=== PATIENT | male | born 1955 | race Hispanic/Latino ===

== ENCOUNTER 2016-06-25 07:13 | Emergency (ER) | payer OTHER ==
[2016-06-25 07:18] VITALS: BP 155/99; PULSE 80; RESP 20; TEMP 98
[2016-06-25 07:28] VITALS: O2SAT 100
[2016-06-25] MEDS ORDERED: Naproxen 500 MG TAB PO ONE (07:44)
--- NOTE | 2016-06-25 07:44 | ED PDOC ---
HPI: General Adult Time Seen by Provider: 06/25/16 07:29 Chief Complaint (Nursing): Back Pain Chief Complaint (Provider): back pain History Per: Patient History/Exam Limitations: no limitations Additional Complaint(s): 60yo male who is a [employer] employee comes to the ED complaining of back pain, now radiating down the left leg for 3 days. 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 No dysuria, fall or trauma. Patient also reports some discomfort in his groin. Taking aspirin. PMD: Morteza Past Medical History Reviewed: Historical Data, Nursing Documentation, Vital Signs Vital Signs: Last Vital Signs Temp 98 F 06/25/16 07:25 Pulse 80 06/25/16 07:25 Resp 20 06/25/16 07:25 BP 155/99 H 06/25/16 07:25 Pulse Ox 100 06/25/16 07:51 - Medical History PMH: HTN, Hyperlipidemia - Surgical History Surgical History: No Surg Hx - Family History Family History: States: No Known Family Hx - Social History Drugs: Denies - Home Medications Home Medications: Ambulatory Orders Medication Instructions Recorded Aspirin [Aspirin EC] 81 mg PO DAILY 11/08/14 Hydrochlorothiazide 12.5 mg PO DAILY #30 cap 11/08/14 Oxycodone HCl/Acetaminophen 1 tab PO Q6 PRN #18 tab 11/08/14 [Percocet 325 mg-5 mg] Rosuvastatin Calcium [Crestor] 20 mg PO HS 11/08/14 Ibuprofen [Motrin] 600 mg PO Q8 PRN #6 tab 11/24/14 oxyCODONE/Acetaminophen [Percocet 1 ea PO BID PRN #8 tab 11/24/14 5/325 mg Tab] Cyclobenzaprine [Cyclobenzaprine 10 mg PO TID #10 tab 06/25/16 HCl] Naproxen [Naprosyn] 500 mg PO Q12H #20 tab 06/25/16 - Allergies Allergies/Adverse Reactions: Allergies Allergy/AdvReac Type Severity Reaction Status Date / Time Penicillins Allergy SWELLING Verified 06/25/16 07:24 Review of Systems ROS Statement: Except As Marked, All Systems Reviewed And Found Negative Genitourinary Male: Positive for: Other (groin discomfort). Negative for: Dysuria Musculoskeletal: Positive for: Back Pain, Leg Pain Physical Exam - Reviewed Nursing Documentation Reviewed: Yes Vital Signs Reviewed: Yes - Physical Exam Appears: Positive for: Well, Non-toxic, No Acute Distress Head Exam: Positive for: ATRAUMATIC, NORMAL INSPECTION, NORMOCEPHALIC Skin: Positive for: Warm, Dry Eye Exam: Positive for: EOMI, PERRL Male Genital Exam: Positive for: other (small left inguinal hernia, non incarcerated. ) Back: Positive for: Other (left paralumbar spasm and tenderness. ) Extremity: Positive for: Normal ROM Neurologic/Psych: Positive for: Alert, Oriented (x3). Negative for: Motor/ Sensory Deficits - ECG O2 Sat by Pulse Oximetry: 100 (RA) Pulse Ox Interpretation: Normal Medical Decision Making Medical Decision Makin Will start flexeril & Naprosyn in the ED. Recommend outpatient follow up for hernia. Disposition - Clinical Impression Clinical Impression: Back strain, Hernia - Patient ED Disposition Is Patient to be Admitted: No Counseled Patient/Family Regarding: Diagnosis, Need For Followup, Rx Given - Disposition Referrals: Sung Doe MD [Staff Provider] - Disposition: Routine/Home Disposition Time: 09:31 Condition: FAIR Additional Instructions: Follow up with employee health to return to work Prescriptions: Cyclobenzaprine [Cyclobenzaprine HCl] 10 mg PO TID #10 tab Naproxen [Naprosyn] 500 mg PO Q12H #20 tab Instructions: Back Pain (ED), Inguinal Hernia (ED) Additional Comments - Additional Comments Additional Comments: Scribe Attestation: Documented by Didier Duque acting as a scribe for Eddi Baptiste MD. Provider Scribe Attestation: All medical record entries made by the Scribe were at my direction and personally dictated by me. I have reviewed the chart and agree that the record accurately reflects my personal performance of the history, physical exam, medical decision making, and the department course for this patient. I have also personally directed, reviewed, and agree with the discharge instructions and disposition.
[2016-06-25] MEDS ORDERED: Naproxen 500 MG TAB PO STA (07:47)
== END 2016-06-25 09:40 | disposition home or self-care (01) ==
LOC: H.ER 07:13
DX: S39.012A Strain of muscle, fascia and tendon of lower back, initial encounter (principal); X50.3XXA Overexertion from repetitive movements, initial encounter; Y99.0 Civilian activity done for income or pay; E78.5 Hyperlipidemia, unspecified; I10 Essential (primary) hypertension; Z79.82 Long term (current) use of aspirin; Z88.0 Allergy status to penicillin

== ENCOUNTER 2017-01-23 08:41 | Emergency (ER) | payer BC, OTHER ==
[2017-01-23 08:49] VITALS: TEMP 97.4
--- NOTE | 2017-01-23 10:12 | ED PDOC ---
HPI: Hypertension/Hypotension Time Seen by Provider: 01/23/17 09:10 Chief Complaint (Nursing): High Blood Pressure Chief Complaint (Provider): High blood pressure History Per: Patient History/Exam Limitations: no limitations Onset/Duration Of Symptoms: Hrs (x2) Current Symptoms Are (Timing): Still Present Associated Symptoms: Headache. denies: Chest Pain, Dyspnea Additional Complaint(s): Chandana Jolly is a 61 year old male, with a past medical history of hypertension and hypercholesterolemia, who presents to the emergency department complaining of high blood pressure and headache onset x2 hours prior to arrival. 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 Patient states he hasn't taken his blood pressure medications. He is currently taking Microzide 12.5mg and Xanax. He denies any chest pain, shortness of breath, fever or chills. No further medical complaints. PMD: Tobias Pro Past Medical History Reviewed: Historical Data, Nursing Documentation, Vital Signs Vital Signs: Last Vital Signs Temp 97.4 F L 01/23/17 08:48 Pulse 82 01/23/17 08:59 Resp 15 01/23/17 08:59 BP 145/101 H 01/23/17 08:59 Pulse Ox 97 01/23/17 08:59 - Medical History PMH: HTN, Hyperlipidemia - Family History Family History: States: Unknown Family Hx - Social History Current smoker - smoking cessation education provided: Yes Alcohol: Social Drugs: Denies - Home Medications Home Medications: Ambulatory Orders Medication Instructions Recorded Aspirin [Aspirin EC] 81 mg PO DAILY 11/08/14 Hydrochlorothiazide 12.5 mg PO DAILY #30 cap 11/08/14 Oxycodone HCl/Acetaminophen 1 tab PO Q6 PRN #18 tab 11/08/14 [Percocet 325 mg-5 mg] Rosuvastatin Calcium [Crestor] 20 mg PO HS 11/08/14 Ibuprofen [Motrin] 600 mg PO Q8 PRN #6 tab 11/24/14 oxyCODONE/Acetaminophen [Percocet 1 ea PO BID PRN #8 tab 11/24/14 5/325 mg Tab] Cyclobenzaprine [Cyclobenzaprine 10 mg PO TID #10 tab 06/25/16 HCl] Naproxen [Naprosyn] 500 mg PO Q12H #20 tab 06/25/16 - Allergies Allergies/Adverse Reactions: Allergies Allergy/AdvReac Type Severity Reaction Status Date / Time Penicillins Allergy SWELLING Verified 06/25/16 07:24 Review of Systems ROS Statement: Except As Marked, All Systems Reviewed And Found Negative Constitutional: Negative for: Fever, Chills Cardiovascular: Negative for: Chest Pain Respiratory: Negative for: Shortness of Breath Neurological: Positive for: Headache Physical Exam - Reviewed Nursing Documentation Reviewed: Yes Vital Signs Reviewed: Yes - Physical Exam Appears: Positive for: Well, Non-toxic, No Acute Distress Head Exam: Positive for: ATRAUMATIC, NORMAL INSPECTION, NORMOCEPHALIC Skin: Positive for: Normal Color, Warm, Dry Eye Exam: Positive for: EOMI, Normal appearance, PERRL Neck: Positive for: Normal, Painless ROM, Supple Cardiovascular/Chest: Positive for: Regular Rate, Rhythm. Negative for: Murmur Respiratory: Positive for: Normal Breath Sounds. Negative for: Respiratory Distress Gastrointestinal/Abdominal: Positive for: Normal Exam, Bowel Sounds, Soft. Negative for: Tenderness, Guarding, Rebound Back: Positive for: Normal Inspection. Negative for: L CVA Tenderness, R CVA Tenderness Extremity: Positive for: Normal ROM. Negative for: Pedal Edema, Deformity, Swelling Neurologic/Psych: Positive for: Alert, Oriented. Negative for: Motor/Sensory Deficits - Laboratory Results Result Diagrams: 01/23/17 10:32 01/23/17 10:32 - ECG O2 Sat by Pulse Oximetry: 97 (RA) Pulse Ox Interpretation: Normal Medical Decision Making Medical Decision Making: Initial Impression: hypertension Initial Plan: --BMP --CBC w/ differential --Hydrodiuril 25 mg PO --reevaluation Scribe Attestation: Documented by Eugenio Elias, acting as a scribe for Winter Marquez MD Provider Scribe Attestation: All medical record entries made by the Scribe were at my direction and personally dictated by me. I have reviewed the chart and agree that the record accurately reflects my personal performance of the history, physical exam, medical decision making, and the department course for this patient. I have also personally directed, reviewed, and agree with the discharge instructions and disposition. 11.30a - patient's blood pressure is improved. Labs are normal. will discharge. Disposition - Clinical Impression Clinical Impression: Stress and adjustment reaction - Patient ED Disposition Is Patient to be Admitted: No Doctor Will See Patient In The: Office Counseled Patient/Family Regarding: Diagnosis, Need For Followup - Disposition Referrals: Jhonathan Pro MD [Staff Provider] - Rashid Parks [Outside] Disposition: Routine/Home Disposition Time: 11:30 Condition: IMPROVED Additional Instructions: continue your medicines as prescribed starting 01/24/2017 Instructions: Stress (ED), Hypertension (ED) Forms: [employer] (Maori), [facility] ED School/Work Excuse - POA Present On Arrival: None
[2017-01-23 10:36] LABS: BASO # 0.1 K/uL (0.0-0.2); BASO % 0.7 % (0.0-2.0); EOS % 0.5 % (0.0-4.0); HEMATOCRIT 47.7 % (35.0-51.0); LYMPH # 2.2 K/uL (1.0-4.3); LYMPH % 23.8 % (20.0-40.0); MEAN CELL VOLUME 96.5 fl (80.0-94.0); MEAN CORPUSCULAR HEMOGLOBIN 33.3 pg (27.0-31.0); MEAN CORPUSCULAR HGB CONC 34.5 g/dL (33.0-37.0); MEAN PLATELET VOLUME 8.3 fl (7.2-11.7); MONO # 0.8 K/uL (0.0-0.8); MONO % 8.3 % (0.0-10.0); NEUT # 6.3 K/uL (1.8-7.0); NEUT % 66.7 % (50.0-75.0); NRBC % 0.1 % (0.0-0.0); RED CELL DISTRIBUTION WIDTH 13.1 % (11.5-14.5); WHITE BLOOD COUNT 9.4 K/uL (4.8-10.8)
[2017-01-23 10:47] LABS: BLOOD UREA NITROGEN 17 mg/dl (9-20); CARBON DIOXIDE 24 mmol/L (22-30); CHLORIDE 106 mmol/L (98-107); GFR AFRICAN-AMERICAN > 60; GLUCOSE,RANDOM 114 mg/dL (75-110); POTASSIUM 4.5 MMOL/L (3.6-5.0); SODIUM 140 mmol/l (132-148)
[2017-01-23 12:44] VITALS: BP 138/90; PULSE 52; RESP 14; O2SAT 99
== END 2017-01-23 12:15 | disposition home or self-care (01) ==
LOC: H.ER 08:41
DX: F43.20 Adjustment disorder, unspecified (principal); I10 Essential (primary) hypertension; E78.5 Hyperlipidemia, unspecified; F17.200 Nicotine dependence, unspecified, uncomplicated; Z79.82 Long term (current) use of aspirin; Z88.0 Allergy status to penicillin

== ENCOUNTER 2017-05-23 13:46 | Emergency (ER) | payer OTHER, BC ==
[2017-05-23 13:51] VITALS: RESP 16; TEMP 98; O2SAT 97
--- NOTE | 2017-05-23 13:59 | ED PDOC ---
HPI: General Adult Time Seen by Provider: 05/23/17 13:53 Chief Complaint (Nursing): Back Pain Chief Complaint (Provider): back pain History Per: Patient Additional Complaint(s): 62-year-old male presents with lower back pain status post fall off a ladder. Patient injured right side of lower back. He denies head injury or loss of consciousness. Patient able to walk but has pain when doing so. Injury occurred about 45 minutes prior to arrival. PMD: Dr. Bharath Pro Past Medical History Reviewed: Historical Data, Nursing Documentation, Vital Signs Vital Signs: Last Vital Signs Temp 98.0 F 05/23/17 13:49 Pulse 112 H 05/23/17 13:49 Resp 16 05/23/17 13:49 BP 152/100 H 05/23/17 13:49 Pulse Ox 97 05/23/17 14:45 - Medical History PMH: HTN, Hyperlipidemia - Family History Family History: States: No Known Family Hx - Living Arrangements Living Arrangements: With Family - Social History Current smoker - smoking cessation education provided: Yes Alcohol: Social Drugs: Denies - Home Medications Home Medications: Ambulatory Orders Medication Instructions Recorded Aspirin [Aspirin EC] 81 mg PO DAILY 11/08/14 Hydrochlorothiazide 12.5 mg PO DAILY #30 cap 11/08/14 Oxycodone HCl/Acetaminophen 1 tab PO Q6 PRN #18 tab 11/08/14 [Percocet 325 mg-5 mg] Rosuvastatin Calcium [Crestor] 20 mg PO HS 11/08/14 Ibuprofen [Motrin] 600 mg PO Q8 PRN #6 tab 11/24/14 oxyCODONE/Acetaminophen [Percocet 1 ea PO BID PRN #8 tab 11/24/14 5/325 mg Tab] Cyclobenzaprine [Cyclobenzaprine 10 mg PO TID #10 tab 06/25/16 HCl] Naproxen [Naprosyn] 500 mg PO Q12H #20 tab 06/25/16 Cyclobenzaprine [Cyclobenzaprine 10 mg PO TID PRN #20 tab 05/23/17 HCl] Naproxen [Naprosyn] 500 mg PO BID #20 tab 05/23/17 - Allergies Allergies/Adverse Reactions: Allergies Allergy/AdvReac Type Severity Reaction Status Date / Time Penicillins Allergy SWELLING Verified 06/25/16 07:24 Review of Systems ROS Statement: Except As Marked, All Systems Reviewed And Found Negative Musculoskeletal: Positive for: Back Pain (right side low back pain s/p fall) Physical Exam - Reviewed Nursing Documentation Reviewed: Yes Vital Signs Reviewed: Yes - Physical Exam Appears: Positive for: Well, Non-toxic, No Acute Distress Skin: Negative for: Rash Eye Exam: Positive for: Normal appearance Cardiovascular/Chest: Positive for: Regular Rate, Rhythm Respiratory: Positive for: Normal Breath Sounds Gastrointestinal/Abdominal: Positive for: Soft. Negative for: Tenderness Back: Positive for: Vertebral Tenderness (Tenderness and muscle spasm right lower lumbar region, no midline tenderness, no CVA tenderness bilaterally, negative bilateral straight leg raise) Extremity: Positive for: Normal ROM Neurologic/Psych: Positive for: Alert, Oriented - ECG O2 Sat by Pulse Oximetry: 97 Pulse Ox Interpretation: Normal - Other Rad L/S Spine x-ray X-Ray: Interpreted by Me, Viewed By Me X-Ray Interpretation: no fx, no dis Medical Decision Making Medical Decision Makin61 year old with right side back pain s/p fall Plan: PO motrin and tylenol X-ray LS spine Patient reports improvement of pain after meds given. Patient is aware of x-ray results, all questions answered. Instructions given for Naprosyn and Flexeril. Patient was instructed to follow-up with primary doctor or orthopedist. Repeat vital signs prior to d/c are stable. Disposition - Clinical Impression Clinical Impression: Back strain, Back contusion, Accidental fall - Patient ED Disposition Is Patient to be Admitted: No Counseled Patient/Family Regarding: Studies Performed, Diagnosis, Need For Followup, Rx Given - Disposition Referrals: Jhonathan Pro MD [Staff Provider] - Gabe Huerta III, MD [Staff Provider] - Disposition: Routine/Home Disposition Time: 15:27 Condition: STABLE Additional Instructions: Rest as much as possible and avoid heavy lifting. Take prescription meds as directed as needed for pain. Follow up with primary doctor or with orthopedist for any persistent symptoms. Prescriptions: Cyclobenzaprine [Cyclobenzaprine HCl] 10 mg PO TID PRN #20 tab PRN Reason: Muscle Spasm Naproxen [Naprosyn] 500 mg PO BID #20 tab Instructions: Muscle Strain (DC), Low Back Pain in Adults Forms: [employer] (Georgian), [facility] ED School/Work Excuse
--- NOTE | 2017-05-23 15:33 | RAD ---
PROCEDURE: Radiographs of the Lumbar Spine. HISTORY: trauma COMPARISON: No prior. FINDINGS: BONES: Normal alignment. No listhesis. No fracture. DISC SPACES: Unremarkable. OTHER FINDINGS: Partially calcified aneurysmal dilatation distal aorta 3.4 cm. IMPRESSION: Unremarkable radiographs of the lumbar spine. Aneurysmal dilatation of partially calcified abdominal aorta.
[2017-05-23 15:59] VITALS: BP 144/82; PULSE 88
== END 2017-05-23 15:59 | disposition home or self-care (01) ==
LOC: H.ER 13:46
DX: S39.012A Strain of muscle, fascia and tendon of lower back, initial encounter (principal); W11.XXXA Fall on and from ladder, initial encounter; Y99.0 Civilian activity done for income or pay; E78.5 Hyperlipidemia, unspecified; I10 Essential (primary) hypertension; I70.0 Atherosclerosis of aorta; Z79.82 Long term (current) use of aspirin; Z88.0 Allergy status to penicillin

== ENCOUNTER 2017-07-31 08:11 | Emergency (ER) | payer BC, OTHER ==
[2017-07-31 08:16] VITALS: O2SAT 98; BMI 27.3
[2017-07-31] MEDS ORDERED: Sodium Chloride 0.9% 1,000 ML IV STA (08:33)
--- NOTE | 2017-07-31 08:41 | ED PDOC ---
HPI: Abdomen Time Seen by Provider: 07/31/17 08:21 Chief Complaint (Nursing): Abdominal Pain Chief Complaint (Provider): abdominal pain History Per: Patient History/Exam Limitations: no limitations Onset/Duration Of Symptoms: Days (x2) Current Symptoms Are (Timing): Still Present Location Of Pain/Discomfort: Epigastric Quality Of Discomfort: "Pain" Associated Symptoms: denies: Fever, Chills, Nausea, Vomiting, Diarrhea Additional Complaint(s): Chandana Jolly is a 61 year old male, with a past medical history of HTN and hypercholesterolemia, who presents to the emergency department complaining of an epigastric abdominal pain onset for x2 days. Patient states pain does not radiate. He reports temporary relief with Advil. Patient is currently taking Aspirin, last dose was yesterday afternoon. He denies any headache, dizziness, shortness of breath, numbness or tingling, weakness, recent travel or new foods. No further medical complaints. Saw Dr. Pro in the hospital and told to go to the ER for a check up. No leg pain or long distance travel. No hormone tx. PMD: Dr. Bharath Pro Past Medical History Reviewed: Historical Data, Nursing Documentation, Vital Signs Vital Signs: Last Vital Signs Temp 98.1 F 07/31/17 08:14 Pulse 73 07/31/17 08:14 Resp 20 07/31/17 08:14 BP 134/86 07/31/17 08:14 Pulse Ox 98 07/31/17 08:44 - Medical History PMH: HTN, Hyperlipidemia Denies: Chronic Kidney Disease - Surgical History Surgical History: No Surg Hx - Family History Family History: States: Unknown Family Hx - Social History Current smoker - smoking cessation education provided: Yes (Heavy smoker) Alcohol: Social Drugs: Denies - Immunization History Hx Tetanus Toxoid Vaccination: No Hx Influenza Vaccination: Yes Hx Pneumococcal Vaccination: Yes - Home Medications Home Medications: Ambulatory Orders Medication Instructions Recorded Aspirin [Aspirin EC] 81 mg PO DAILY 11/08/14 Hydrochlorothiazide 12.5 mg PO DAILY #30 cap 11/08/14 Oxycodone HCl/Acetaminophen 1 tab PO Q6 PRN #18 tab 11/08/14 [Percocet 325 mg-5 mg] Rosuvastatin Calcium [Crestor] 20 mg PO HS 11/08/14 Ibuprofen [Motrin] 600 mg PO Q8 PRN #6 tab 11/24/14 oxyCODONE/Acetaminophen [Percocet 1 ea PO BID PRN #8 tab 11/24/14 5/325 mg Tab] Cyclobenzaprine [Cyclobenzaprine 10 mg PO TID #10 tab 06/25/16 HCl] Naproxen [Naprosyn] 500 mg PO Q12H #20 tab 06/25/16 Cyclobenzaprine [Cyclobenzaprine 10 mg PO TID PRN #20 tab 05/23/17 HCl] Naproxen [Naprosyn] 500 mg PO BID #20 tab 05/23/17 - Allergies Allergies/Adverse Reactions: Allergies Allergy/AdvReac Type Severity Reaction Status Date / Time Penicillins Allergy SWELLING Verified 06/25/16 07:24 Review of Systems ROS Statement: Except As Marked, All Systems Reviewed And Found Negative Constitutional: Negative for: Fever, Chills Respiratory: Negative for: Shortness of Breath Gastrointestinal: Positive for: Abdominal Pain (epigastric). Negative for: Nausea, Vomiting, Diarrhea Neurological: Negative for: Weakness, Numbness, Headache, Dizziness Physical Exam - Reviewed Nursing Documentation Reviewed: Yes Vital Signs Reviewed: Yes - Physical Exam Appears: Positive for: Non-toxic Head Exam: Positive for: ATRAUMATIC, NORMOCEPHALIC Skin: Positive for: Normal Color, Warm, Dry Eye Exam: Positive for: Normal appearance, EOMI, PERRL ENT: Positive for: Normal ENT Inspection. Negative for: Nasal Congestion Neck: Positive for: Painless ROM, Supple Cardiovascular/Chest: Positive for: Regular Rate, Rhythm, Chest Non Tender. Negative for: Edema, Murmur Respiratory: Positive for: Normal Breath Sounds. Negative for: Respiratory Distress Gastrointestinal/Abdominal: Positive for: Tenderness (to lower sternal and epigastric area) Back: Positive for: Normal Inspection. Negative for: L CVA Tenderness, R CVA Tenderness, Vertebral Tenderness Extremity: Positive for: Normal ROM (upper and lower extremities). Negative for : Tenderness, Calf Tenderness, Deformity, Swelling Neurologic/Psych: Positive for: Alert, Oriented. Negative for: Motor/Sensory Deficits - Laboratory Results Result Diagrams: 07/31/17 08:58 07/31/17 08:58 Interpretation Of Abn Labs: no acute - ECG ECG: Positive for: Interpreted By Me, Viewed By Me ECG Rhythm: Positive for: Sinus Rhythm. Negative for: Atrial Fibrillation O2 Sat by Pulse Oximetry: 98 (RA) Pulse Ox Interpretation: Normal - Radiology X-Ray: Interpreted by Me, Viewed By Me X-Ray Interpretation: No Acute Disease - Progress ED Course And Treament: 1024: Dr. Pro has seen pt. and evaluated in the ER. Wants pt. to be discharged and fu with him. Pt. is pain free currently. Has had multiple work ups for chest per Dr. Pro with no findings. Per. Dr. Pro, pt. with chest pain so he wanted an EKG done during that time. No acute findings on it so ok to DC. Pt. is aaox3. Tolerated PO. Medical Decision Making Medical Decision Making: Time: 08:21 Initial Impression: epigastric pain Initial Plan: --EKG --CMP --Lipase --Troponin I --CBC w/ differential --PTT --PT --Chest portable [RAD] --Sodium Chloride 1,000 ml IV 1,000 mls/hr --Reevaluation Scribe Attestation: Documented by Eugenio Elias acting as a scribe for Silas Ríos MD. Scribe Attestation: All medical record entries made by the Scribe were at my direction and personally dictated by me. I have reviewed the chart and agree that the record accurately reflects my personal performance of the history, physical exam, medical decision making, and the department course for this patient. I have also personally directed, reviewed, and agree with the discharge instructions and disposition. Disposition - Clinical Impression Clinical Impression: Chest pain - Patient ED Disposition Is Patient to be Admitted: No Counseled Patient/Family Regarding: Studies Performed, Diagnosis, Need For Followup - Disposition Referrals: Jhonathan Pro MD [Staff Provider] - 08/01/17 Disposition: Routine/Home Disposition Time: 10:27 Condition: STABLE Additional Instructions: Return if not better in 3 days. Instructions: Chest Pain Forms: [facility] (Mauritanian)
[2017-07-31 09:05] LABS: BASO # 0.1 K/uL (0.0-0.2); BASO % 0.8 % (0.0-2.0); EOS # 0.1 K/uL (0.0-0.7); HEMOGLOBIN 16.1 g/dL (12.0-18.0); LYMPH # 2.7 K/uL (1.0-4.3); MEAN CORPUSCULAR HEMOGLOBIN 33.8 pg (27.0-31.0); MEAN CORPUSCULAR HGB CONC 34.9 g/dL (33.0-37.0); MEAN PLATELET VOLUME 8.2 fl (7.2-11.7); MONO # 0.7 K/uL (0.0-0.8); NEUT # 4.5 K/uL (1.8-7.0); NEUT % 55.2 % (50.0-75.0); RBC 4.77 Mil/uL (4.40-5.90); WHITE BLOOD COUNT 8.1 K/uL (4.8-10.8)
[2017-07-31 09:14] LABS: ALB/GLOB RATIO 1.2 (1.0-2.1); ALBUMIN 3.9 g/dL (3.5-5.0); ALT/SGPT 33 U/L (21-72); AST/SGOT 26 U/L (17-59); BLOOD UREA NITROGEN 21 mg/dl (9-20); GFR AFRICAN-AMERICAN > 60; GFR NON-AFRICAN AMERICAN > 60; LIPASE 30 U/L (23-300)
[2017-07-31 11:03] VITALS: BP 130/82; PULSE 84; RESP 17; TEMP 98.2
--- NOTE | 2017-07-31 13:19 | RAD ---
HISTORY: dyspnea COMPARISON: Chest radiograph dated 06/28/2017. FINDINGS: LUNGS: No active pulmonary disease. PLEURA: No significant pleural effusion identified, no pneumothorax apparent. CARDIOVASCULAR: Atherosclerotic aortic calcifications. Cardiomediastinal silhouette within normal limits. OSSEOUS STRUCTURES: Unchanged. VISUALIZED UPPER ABDOMEN: Normal. OTHER FINDINGS: None. IMPRESSION: No active disease.
--- NOTE | 2017-08-02 11:11 | CARD ---
APPROVED REPORT EKG Measurement Heart [id number] <Conclusion> Normal sinus rhythm Left posterior fascicular block Abnormal ECG
== END 2017-07-31 10:50 | disposition home or self-care (01) ==
LOC: H.ER 08:11
DX: R07.89 Other chest pain (principal); E78.5 Hyperlipidemia, unspecified; F17.200 Nicotine dependence, unspecified, uncomplicated; I10 Essential (primary) hypertension; Z79.82 Long term (current) use of aspirin; Z88.0 Allergy status to penicillin

== ENCOUNTER 2017-11-18 00:39 | Inpatient (IN) | payer OTHER ==
[2017-11-18 01:07] VITALS: BMI 27.1
[2017-11-18] MEDS ORDERED: Sodium Chloride 0.9% 1,000 ML IV SCH (01:15)
[2017-11-18] MEDS ORDERED: Sodium Chloride 0.9% 50 ML IV ONE (01:34)
[2017-11-18] MEDS ORDERED: Iodixanol 320 MG/ML 100 ML BOTTLE IV ONE ×2 (01:34→08:42)
[2017-11-18 01:36] LABS: BASO # 0.1 K/uL (0.0-0.2); BASO % 0.6 % (0.0-2.0); EOS # 0.2 K/uL (0.0-0.7); HEMOGLOBIN 16.8 g/dL (12.0-18.0); LYMPH # 3.9 K/uL (1.0-4.3); MEAN CELL VOLUME 97.3 fl (80.0-94.0); MEAN CORPUSCULAR HEMOGLOBIN 34.1 pg (27.0-31.0); MEAN CORPUSCULAR HGB CONC 35.1 g/dL (33.0-37.0); MEAN PLATELET VOLUME 7.9 fl (7.2-11.7); MONO # 1.1 K/uL (0.0-0.8); MONO % 8.8 % (0.0-10.0); NEUT % 56.6 % (50.0-75.0); RBC 4.92 Mil/uL (4.40-5.90); RED CELL DISTRIBUTION WIDTH 13.1 % (11.5-14.5); WHITE BLOOD COUNT 12.3 K/uL (4.8-10.8)
--- NOTE | 2017-11-18 01:43 | ED PDOC ---
HPI:STROKE - Time Time: 01:15 - Historian Historian: Family - Chief Complaint Chief Complaint: Weakness, Mental status change - Onset Date: 11/18/17 Time: 12:00 Onset: Hours (x 1) - Timing Timing: Improved - Context Context: Sitting - Location Locate right:: Upper extremity, Lower extremity - Severity of pain Maximum severity:: None - Associated Symptoms Associated symptoms:: Anticoagulant use (baby aspirin), Headache - TPA Positive for Contraindication: No - Notes: Notes:: 61 year old male with a history of high cholesterol and hypertension presents to the ED with right sided weakness of upper and lower extremities, headache and dizziness. Patient's family reports he went to bed at ~9:30 tonight. During the day, prior to onset of symptoms, daughter reports he was acting "out of it". At midnight, he was incoherent and unable to move at home, especially the right side of his body. He was weak for 15 minutes and was given a baby aspirin shortly after. Symptoms then progressed to headache and dizziness. In ED, patient no longer feels weakness and only reports a headache. PMD Dr. Bharath Pro MD NIHSS Stroke Scale - Date/Time Evaluation Performed Date Performed: 11/18/17 Time Performed: 01:25 When Was NIHSS Performed: Code Stroke - How Severe is the Stroke Level of Consciousness: 0=Alert LOC to Questions: 0=Both comments correct LOC to commands: 0=Obeys both correctly Best Gaze: 0=Normal Visual: 0=No visual loss Facial: 0=Normal Motor Arm - Left: 0=No drift Motor Arm - Right: 0=No drift Motor Leg - Left: 0=No drift Motor Leg - Right: 0=No drift Limb Ataxia: 0=Absent Sensory: 0=Normal Best Language: 0=No aphasia Dysarthia: 0=Normal articulation Extinction & Inattention (Neglect): 0=Normal, no object Score: 0 rTPA Inclusion/Exclusion - Refusal of Treatment Patient Refused Treatment: No - Inclusion Criteria for Altepase Patient is 18 years or Older: Yes The Clinical Diagnosis of Ischemic Stroke That is Causing a Potentially Disabling Neurological Deficit: Yes Time of Onset is Well Established to be Less Than 270 Minute Before Treatment Would Begin: Yes Risk/Benefit Discussed With Patient/Family Member Present: Yes - Warning to TPA With Conditions Condition: Stroke Serevity Too Mild, Rapid Improvement Past Medical History Reviewed: Historical Data, Nursing Documentation, Vital Signs Vital Signs: Last Vital Signs Temp 97.6 F 11/18/17 01:06 Pulse 72 11/18/17 01:06 Resp 16 11/18/17 01:06 BP 159/98 H 11/18/17 01:06 Pulse Ox 96 11/18/17 01:06 - Medical History PMH: HTN, Hyperlipidemia Denies: Chronic Kidney Disease - Surgical History Surgical History: No Surg Hx - Family History Family History: States: Unknown Family Hx - Immunization History Hx Tetanus Toxoid Vaccination: No Hx Influenza Vaccination: Yes Hx Pneumococcal Vaccination: Yes - Home Medications Home Medications: Ambulatory Orders Medication Instructions Recorded Aspirin [Aspirin Chewable] 81 mg PO DAILY 11/18/17 Atorvastatin [Lipitor] 40 mg PO DAILY 11/18/17 Ezetimibe [Zetia] 10 mg PO DAILY 11/18/17 Hydrochlorothiazide [Microzide] 12.5 mg PO DAILY 11/18/17 - Allergies Allergies/Adverse Reactions: Allergies Allergy/AdvReac Type Severity Reaction Status Date / Time Penicillins Allergy SWELLING Verified 06/25/16 07:24 Review of Systems ROS Statement: Except As Marked, All Systems Reviewed And Found Negative Constitutional: Positive for: Weakness (right sided; resolved on arrival ) Neurological: Positive for: Headache, Dizziness Physical Exam - Reviewed Nursing Documentation Reviewed: Yes Vital Signs Reviewed: Yes - Physical Exam Appears: Positive for: Non-toxic, No Acute Distress Head Exam: Positive for: ATRAUMATIC, NORMAL INSPECTION, NORMOCEPHALIC Skin: Positive for: Normal Color, Warm, Dry Eye Exam: Positive for: EOMI, Normal appearance, PERRL Neck: Positive for: Normal, Painless ROM, Supple Cardiovascular/Chest: Positive for: Regular Rate, Rhythm. Negative for: Murmur Respiratory: Positive for: Normal Breath Sounds. Negative for: Respiratory Distress Gastrointestinal/Abdominal: Positive for: Normal Exam, Soft. Negative for: Tenderness Extremity: Positive for: Normal ROM. Negative for: Deformity Neurologic/Psych: Positive for: Alert, head gauge unit operator II-XII (intact), Oriented, Cerebellar Tests (negative). Negative for: Motor/Sensory Deficits, Facial Droop - Laboratory Results Result Diagrams: 11/18/17 01:19 11/18/17 01:19 - ECG O2 Sat by Pulse Oximetry: 96 (RA) Pulse Ox Interpretation: Normal - Physician Consult Information Time Consulting Physican Contacted: 01:29 Physician Contacted: Luther Garcia Medical Decision Making Medical Decision Makin Impression: possible stroke, TIA Initial Plan: --Blood type --CTA Head --CT head --EKG --CMP --hemaglobin --lipid panel --Troponin --CBC --PTT --Prothrombin --Chest x-ray --Aspirin 243 mg PO [address] Garcia aware of case, recommends ASA 300 CTA Head and Neck shows possible carotid dissection Case discussed with Dr. Garcia again, recommends heparin infusion as per neuro- interventional Patient has no symptoms at this time, well appearing Scribe Attestation: Documented by Jena Marina, acting as a scribe for Nirmal Charles MD Provider Scribe Attestation: All medical record entries made by the Scribe were at my direction and personally dictated by me. I have reviewed the chart and agree that the record accurately reflects my personal performance of the history, physical exam, medical decision making, and the department course for this patient. I have also personally directed, reviewed, and agree with the discharge instructions and disposition Disposition - Clinical Impression Clinical Impression: TIA (transient ischemic attack), Carotid artery dissection - Disposition Disposition Time: 01:00 Condition: SERIOUS
[2017-11-18 01:45] LABS: ALB/GLOB RATIO 1.2 (1.0-2.1); ALT/SGPT 35 U/L (21-72); AST/SGOT 25 U/L (17-59); BLOOD UREA NITROGEN 20 mg/dl (9-20); CALCIUM 8.8 mg/dL (8.4-10.2); GFR NON-AFRICAN AMERICAN > 60; HDL CHOLESTEROL 41 MG/DL (30-70)
[2017-11-18 01:51] LABS: PROTHROMBIN TIME 11.3 Seconds (9.8-13.1)
[2017-11-18 01:54] LABS: PARTIAL THROMBOPLASTIN TIME 29.8 Seconds (25.6-37.1)
[2017-11-18 01:56] LABS: LDL CHOLESTEROL 159 mg/dL (0-129)
[2017-11-18] MEDS ORDERED: Heparin 25,000units in D5W 25,000 UNITS/250 ML BAG IV SCH (04:00)
--- NOTE | 2017-11-18 05:07 | CP.PCM.HP ---
Addendum entered by Laila Bob MD 11/18/17 16:07: Diagnoses: 1. Acute CVA 2. Large Thrombus , left MCA Addendum entered by Laila Bob MD 11/18/17 16:00: Patient seen and examined with resident. As soon as patient was brought up from ED , he had recurrence of right sided hemiparesis accompanied by aphasia. Code Stroke called. Rpt CT of head showed Left MCA infarct. Rpt CTA showed that thrombus in Left ICA moved to MCA. Dr Garcia and Dr Patel called and discussed case - they recommended immediate transfer for Neuro intervention georgette. Patient transferred to [facility] in [place] Higher level of care. Family were at bedside and I had discussed Imaging results and need for further neuro intervention , that [facility] [place] is unable to do this procedure so need for transfer to another [facility] where procedure could be done . 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 Acute Right hemiparesis, Dr. Garcia, neurology called who recommended CTA head/Neck O: VS reviewed, PE: Right hemiparesis, alert and awake A/P: 61 y/o Male admitted for evaluation and treatment of ICA thrombosis - CTA: migration of thrombus from ICA to MCA - Neuro intervention, Dr. Patel called who recommended, STAT patient's transfer to [facility] for higher care/cath/surgical intervention - Transfer patient to the [facility] Case discussed with Dr. Bob --- Geetha Dukes, PGY- II Original Note: <Meng Kong - Last Filed: 11/18/17 05:58> History of Present Illness - History of Present Illness History of Present Illness: A 61 yo male with PMH of HTN, Hypercholesterolemia present to ER due to headache, RIGHT Sided weakness and numbness that started at midnight. Pt state that he was a sleep and his noted that he was sweaty and moaning, she woke him up, and he couldn't move his Right side for 10 mint. Pt received a aspirin 81mg upon noticing symptoms. Pt does state he sweat daily while sleep but never had loss/decrease of movement of any limbs. Upon arrival to ER pt had full recovery, and with no symptoms. Pt denies any chest pain, sob, change in vision, abd pain, diarrhea, or any other symptoms of concern. ROS: All pertinent neg except for chronic cough and what mentioned in HPI ED Course Code Stroke was called upon arrival Ct head No acute disease noted CTA: carotid artery Dissection was noted, ``preliminary report`` Xray: no acute disease ``preliminary report`` Labs: CBC/CMP WNL except WBC of 12.3 Cholesterol 236, LDL 159 Vitals 72hr 159/98 16RR, 96 ox. Aspirin and heparin were given Ground Nuclear Weapons Assembly Officer: Dr. Murillo Allergy: Penicllins PMH: HTN, Hypercholesterolemia PSH: none Social: smoke 40 pack a day, drink occ, denies drug use. Present on Admission - Present on Admission Any Indicators Present on Admission: No Review of Systems - Constitutional Constitutional: Night Sweats, Weight Loss - EENT Eyes: As Per HPI. absent: Blurred Vision, Diplopia Nose/Mouth/Throat: As Per HPI - Cardiovascular Cardiovascular: absent: Chest Pain, Chest Pain at Rest, Chest Pain with Activity, Irregular Heart Rhythm - Respiratory Respiratory: Cough. absent: Wheezing, Snoring, Stridor - Gastrointestinal Gastrointestinal: As Per HPI. absent: Constipation, Diarrhea - Genitourinary Genitourinary: As Per HPI - Reproductive: Male Reproductive:Male: As Per HPI - Musculoskeletal Musculoskeletal: As Per HPI - Integumentary Integumentary: As Per HPI - Neurological Neurological: As Per HPI - Psychiatric Psychiatric: As Per HPI - Endocrine Endocrine: As Per HPI Past Patient History - Infectious Disease Hx of Infectious Diseases: None - Past Social History Smoking Status: Heavy Smoker > 10 Cigarettes Daily Alcohol: Occasional Drugs: Denies Home Situation {Lives}: With Family - CARDIAC Hx Hypertension: Yes - PULMONARY Hx Respiratory Disorders: No - HEENT Hx HEENT Problems: No - RENAL Hx Chronic Kidney Disease: No - ENDOCRINE/METABOLIC Hx Endocrine Disorders: No - HEMATOLOGICAL/ONCOLOGICAL Hx Blood Disorders: No - INTEGUMENTARY Hx Dermatological Problems: No - MUSCULOSKELETAL/RHEUMATOLOGICAL Hx Musculoskeletal Disorders: No - GASTROINTESTINAL Hx Gastrointestinal Disorders: No - GENITOURINARY/GYNECOLOGICAL Hx Genitourinary Disorders: No - PSYCHIATRIC Hx Psychophysiologic Disorder: No Hx Substance Use: No - SURGICAL HISTORY Hx Surgeries: Yes Other/Comment: dental surgery - ANESTHESIA Hx Anesthesia: No Hx Anesthesia Reactions: No Hx Malignant Hyperthermia: No Meds Allergies/Adverse Reactions: Allergies Allergy/AdvReac Type Severity Reaction Status Date / Time Penicillins Allergy SWELLING Verified 06/25/16 07:24 Physical Exam - Constitutional Appears: Well, Non-toxic, No Acute Distress - Head Exam Head Exam: ATRAUMATIC, NORMAL INSPECTION, NORMOCEPHALIC - Eye Exam Eye Exam: EOMI, Normal appearance, PERRL Pupil Exam: NORMAL ACCOMODATION, PERRL - ENT Exam ENT Exam: Mucous Membranes Moist, Normal Exam - Neck Exam Neck exam: Positive for: Full Rom, Normal Inspection - Respiratory Exam Respiratory Exam: Clear to Auscultation Bilateral, NORMAL BREATHING PATTERN. absent: Rales, Rhonchi, Wheezes, Respiratory Distress - Cardiovascular Exam Cardiovascular Exam: REGULAR RHYTHM, +S1, +S2 - GI/Abdominal Exam GI & Abdominal Exam: Normal Bowel Sounds, Soft. absent: Pulsatile Mass, Rigid - Extremities Exam Extremities exam: Positive for: full ROM, normal capillary refill, normal inspection. Negative for: calf tenderness, joint swelling, tenderness - Back Exam Back exam: FULL ROM, NORMAL INSPECTION. absent: CVA tenderness (L), CVA tenderness (R), tenderness - Neurological Exam Neurological exam: Alert, CN II-XII Intact, Oriented x3 Additional comments: no sign of weakness/ loss of sensation in b/L extremities. - Psychiatric Exam Psychiatric exam: Anxious, Normal Affect, Normal Mood - Skin Skin Exam: Dry, Intact, Normal Color, Warm Results - Vital Signs Recent Vital Signs: Last Vital Signs Temp 97.6 F 11/18/17 01:06 Pulse 70 11/18/17 01:50 Resp 24 11/18/17 01:50 BP 151/72 H 11/18/17 01:50 Pulse Ox 96 11/18/17 04:36 - Labs Result Diagrams: 11/18/17 01:19 11/18/17 01:19 Labs: Laboratory Results - last 24 hr 11/18/17 11/18/17 11/18/17 01:16 01:19 01:19 WBC 12.3 H D RBC 4.92 Hgb 16.8 Hct 47.9 MCV 97.3 H MCH 34.1 H MCHC 35.1 RDW 13.1 Plt Count 228 MPV 7.9 Neut % (Auto) 56.6 Lymph % (Auto) 32.0 Maries % (Auto) 8.8 Eos % (Auto) 2.0 Baso % (Auto) 0.6 Neut # (Auto) 7.0 Lymph # (Auto) 3.9 Maries # (Auto) 1.1 H Eos # (Auto) 0.2 Baso # (Auto) 0.1 PT INR APTT Sodium 140 Potassium 3.9 Chloride 108 H Carbon Dioxide 25 Anion Gap 11 BUN 20 Creatinine 0.8 Est GFR ( Amer) > 60 Est GFR (Non-Af Amer) > 60 POC Glucose (mg/dL) 110 Random Glucose 116 H Calcium 8.8 Total Bilirubin 0.7 AST 25 ALT 35 Alkaline Phosphatase 55 Troponin I < 0.0120 Total Protein 7.4 Albumin 4.0 Globulin 3.4 Albumin/Globulin Ratio 1.2 Triglycerides 130 D Cholesterol 236 H LDL Cholesterol Direct 159 H HDL Cholesterol 41 BBK History Checked 11/18/17 11/18/17 01:19 01:19 WBC RBC Hgb Hct MCV MCH MCHC RDW Plt Count MPV Neut % (Auto) Lymph % (Auto) Maries % (Auto) Eos % (Auto) Baso % (Auto) Neut # (Auto) Lymph # (Auto) Maries # (Auto) Eos # (Auto) Baso # (Auto) PT 11.3 INR 1.0 APTT 29.8 Sodium Potassium Chloride Carbon Dioxide Anion Gap BUN Creatinine Est GFR ( Amer) Est GFR (Non-Af Amer) POC Glucose (mg/dL) Random Glucose Calcium Total Bilirubin AST ALT Alkaline Phosphatase Troponin I Total Protein Albumin Globulin Albumin/Globulin Ratio Triglycerides Cholesterol LDL Cholesterol Direct HDL Cholesterol BBK History Checked No verified bt Assessment & Plan (1) TIA (transient ischemic attack) Status: Acute (2) Carotid artery dissection Status: Acute (3) Hypertension Status: Chronic (4) Hypercholesteremia Status: Chronic (5) DVT prophylaxis Status: Acute - Assessment and Plan (Free Text) Assessment: A 61 yo male with PMH of HTN, Hypercholesterolemia present to ER due to headache, RIGHT Sided weakness and numbness that started at midnight. Admitted to evaluate and manage TIA/CVA TIA Code juliette called to evaluate for stroke CT head: no acute disease Neuro consulted Xray ordered no acute disease CBC/CMP: WNL except WBC of 12.8, Cholesterol 236, LDL 159 Vitals WNL except Bp of 159/98 PE: No sign of weakness or loss of sensation Cont aspirin admit to telemetry Carotid artery dissection CTA: Carotid artery dissection Neurointerventional Dr. Benitez consulted Cardiology Dr. Pro consulted trop x1 neg Heparin given HTN Chronic Will continue Home medication Hypercholesterolemia Continue Home medication DVT prophylaxis Heparin 40 SC <Nikita Camargo - Last Filed: 11/18/17 06:49> Results - Vital Signs Recent Vital Signs: Last Vital Signs Temp 97.6 F 11/18/17 01:06 Pulse 70 11/18/17 01:50 Resp 24 11/18/17 01:50 BP 151/72 H 11/18/17 01:50 Pulse Ox 96 11/18/17 05:00 - Labs Result Diagrams: 11/18/17 01:19 11/18/17 01:19 Labs: Laboratory Results - last 24 hr 11/18/17 11/18/17 11/18/17 01:16 01:19 01:19 WBC 12.3 H D RBC 4.92 Hgb 16.8 Hct 47.9 MCV 97.3 H MCH 34.1 H MCHC 35.1 RDW 13.1 Plt Count 228 MPV 7.9 Neut % (Auto) 56.6 Lymph % (Auto) 32.0 Maries % (Auto) 8.8 Eos % (Auto) 2.0 Baso % (Auto) 0.6 Neut # (Auto) 7.0 Lymph # (Auto) 3.9 Maries # (Auto) 1.1 H Eos # (Auto) 0.2 Baso # (Auto) 0.1 PT INR APTT Sodium 140 Potassium 3.9 Chloride 108 H Carbon Dioxide 25 Anion Gap 11 BUN 20 Creatinine 0.8 Est GFR ( Amer) > 60 Est GFR (Non-Af Amer) > 60 POC Glucose (mg/dL) 110 Random Glucose 116 H Calcium 8.8 Total Bilirubin 0.7 AST 25 ALT 35 Alkaline Phosphatase 55 Troponin I < 0.0120 Total Protein 7.4 Albumin 4.0 Globulin 3.4 Albumin/Globulin Ratio 1.2 Triglycerides 130 D Cholesterol 236 H LDL Cholesterol Direct 159 H HDL Cholesterol 41 BBK History Checked 11/18/17 11/18/17 01:19 01:19 WBC RBC Hgb Hct MCV MCH MCHC RDW Plt Count MPV Neut % (Auto) Lymph % (Auto) Maries % (Auto) Eos % (Auto) Baso % (Auto) Neut # (Auto) Lymph # (Auto) Maries # (Auto) Eos # (Auto) Baso # (Auto) PT 11.3 INR 1.0 APTT 29.8 Sodium Potassium Chloride Carbon Dioxide Anion Gap BUN Creatinine Est GFR ( Amer) Est GFR (Non-Af Amer) POC Glucose (mg/dL) Random Glucose Calcium Total Bilirubin AST ALT Alkaline Phosphatase Troponin I Total Protein Albumin Globulin Albumin/Globulin Ratio Triglycerides Cholesterol LDL Cholesterol Direct HDL Cholesterol BBK History Checked No verified bt Attending/Attestation - Attestation I have personally seen and examined this patient.: Yes I have fully participated in the care of the patient.: Yes I have reviewed all pertinent clinical information: Yes Notes (Text): 11/18/17 06:45 I saw, examined and discussed this patient with Dr Ezio Maxwell. I agree with the Assessment and plan above. Mr Jolly has hx of HTN and HLD and comes with hx of right sided weakness lasting 10minutes. The CT head was negative. The CTA head and neck showed S uspicion for a Right carotid Dissection. Dr Garcia and the Neuro Web Systems Developer were consulted and considered that this could be a moving clot. The recommended heparin drip, and will follow up with the patient. Nikita Camargo MD
[2017-11-18 08:28] VITALS: BP 132/74; PULSE 67; RESP 20; TEMP 98.6; O2SAT 98
[2017-11-18] MEDS ORDERED: Sodium Chloride 0.9% 100 ML ONE (08:42)
--- NOTE | 2017-11-18 08:54 | PCM.RRT ---
<Geetha Dukes - Last Filed: 11/18/17 11:18> TURRET PUNCH OPERATOR Nurse Assessment - Situation TURRET PUNCH OPERATOR Reason for Call: Change in Mental Status TURRET PUNCH OPERATOR Called By: RN OlegReason for TURRET PUNCH OPERATOR - A) Acute Change in Patient: (Select all that apply): Acute change in mental status (Right side weakness.) Subjective: This is 61 y/o Male admitted for evaluation and treatment of ICA thrombosis. TURRET PUNCH OPERATOR/Code stroke was called from telemetry due to AMS, right after patient arrived to the floor from ER. Upon arrival, patient is aphasic, alert, awake, unable to move his right extremities. VS reviewed, Physical examination consistent with left ischemic changes. Dr. Garcia, Neurology called who recommended STAT CTA of head and neck/ head CT w/o contrast. Patient was sent for STAT CT. NIHSS Score 14 - Radiologist was called and CTA results reviewed, which suggests migration of thrombus from ICA to MCA. STAT MRI head was ordered, Neurologist Dr. Patel was called who suggested STAT patient's transfer to [facility] for higher care/cath/surgical intervention. Dr. Patel also recommended to hold Heparin drip. TRANSFER process initiated. Case discussed with Dr. Bob - Neurological Status (Select all that apply): Alert. absent: Verbal - Respiratory Oxygen Delivery Method: Non Rebreather @% (15 L) - Constitutional Appears: Agitated - Head Head Exam: NORMAL INSPECTION - Eyes Eye Exam: EOMI, Normal appearance - Respiratory Exam Respiratory Exam: Clear to Ausculation Bilateral, NORMAL BREATHING PATTERN - Cardiovascular Exam Cardiovascular Exam: REGULAR RHYTHM - GI/Abdominal Exam GI & Abdominal Exam: Soft, Normal Bowel Sounds. absent: Tenderness - Neurological Exam Neurological Exam: Alert, Awake - Extremities Exam Additional comments: Intact left extremities, moving spontaneously Right hemiparesis <Laila Bob - Last Filed: 11/18/17 16:16> Attending/Attestation - Attestation I have personally seen and examined this patient.: Yes I have fully participated in the care of the patient.: Yes I have reviewed all pertinent clinical information, including history, physical exam and plan: Yes Notes (Text): Code Stroke called bec there is a recurrence of the right sided hemiparesis accompanied by aphasia. I responded with the residents Initial NIHSS=[address] of head , CTA of head and Neck done - immediately read by Dr Giles - Migration of thrombus from left ICA . Immediately discussed case with Dr Garcia Neurology and Dr Patel -Neuro Interventionalist who rec Emergent Mechanical Thrombectomy . Stat Transfer to [facility] done via [facility].
--- NOTE | 2017-11-18 08:56 | CARD ---
APPROVED REPORT Date of service: 11/18/2017 EKG Measurement Heart [id number] <Conclusion> Normal sinus rhythm prolonged QT Rightward axis low voltage abnormal ECG
--- NOTE | 2017-11-18 09:23 | CT ---
Date of service: 11/18/2017 PROCEDURE: CT HEAD WITHOUT CONTRAST. HISTORY: MAJOR CASE DETECTIVE/Code stroke COMPARISON: Noncontrast head CT 11/18/2017 1:13 a.m.. TECHNIQUE: Axial computed tomography images were obtained through the head/brain without intravenous contrast. Radiation dose: Total exam DLP = 836.23 mGy-cm. This CT exam was performed using one or more of the following dose reduction techniques: Automated exposure control, adjustment of the mA and/or kV according to patient size, and/or use of iterative reconstruction technique. FINDINGS: HEMORRHAGE: No intracranial hemorrhage. BRAIN: No mass effect or edema at this time despite the presence of intraluminal filling defect in the left cervical and cavernous ICA on prior CT angiogram 11/18/2017 1:44 a.m.. Follow-up MRI is recommended as this is more sensitive than CT for early brain infarction. Instead, the left M1 and possibly proximal M2 MCA branches are hyperdense compatible with thrombus migration antegrade from left cervical ICA position previously demonstrated. Right MCA and the basilar artery exhibit normal density. Normal corticomedullary differentiation is appreciated above and below the tentorium once again. No suspicious extra-axial collections identified. There is no midline shift in the posterior fossa contents remain unremarkable throughout. VENTRICLES: Unremarkable. No hydrocephalus. CALVARIUM: Unremarkable. PARANASAL SINUSES: Unremarkable as visualized. No significant inflammatory changes. MASTOID AIR CELLS: Unremarkable as visualized. No inflammatory changes. OTHER FINDINGS: None. IMPRESSION: Findings most compatible with thrombus migration from distal left cervical ICA and cavernous ICA now into left MCA which is hyperdense up to M2 branches indicating lengthy thrombosed segment. No CT pattern of parenchymal ischemia nevertheless at this time. Please see separate CT angiogram neck and brain also performed 11/18/2017 at 8:40 a.m.. The remainder the examination appears unremarkable. Findings discussed with Nurse Practitioner Paulino with written down and read back verification 11/18/2017 9:59 a.m..
--- NOTE | 2017-11-18 10:11 | CT ---
Date of service: 11/18/2017 PROCEDURE: CT Angiography of the Brain and Neck. HISTORY: Code Stroke COMPARISON: Intracranial and Neck CT angiogram 11/18/2017 1:40 a.m.. TECHNIQUE: CT angiography of the intracranial and neck arteries was performed. Coronal and sagittal maximum intensity projection reformatted images were generated. Contrast Dose: Visipaque 320, 99 cc Radiation dose:Total exam DLP = 516.83 mGy-cm. This CT exam was performed using one or more of the following dose reduction techniques: Automated exposure control, adjustment of the mA and/or kV according to patient size, and/or use of iterative reconstruction technique. FINDINGS: INTERNAL CEREBRAL ARTERIES: Atherosclerosis without significant stenosis is reiterated at the right cavernous ICA with widely intra canalicular right SNOW appreciated. 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 Flow is still significantly compromised through the intra canalicular and cavernous left ICA segments to a moderate to severe degree. The overall pattern suggests thrombus migration from the left ICA into left MCA distribution, which is favored over prior suspicion of left carotid dissection. ANTERIOR CEREBRAL ARTERIES: The right anterior cerebral artery enhances in a normal fashion. However, there is some attenuation in the interval at the A1 left SNOW branches suggesting potential partial thrombosis in the interval. Robust enhancement is seen through the anterior communicating artery with symmetric enhancement seen at the bilateral A2 and more distal SNOW branches. MIDDLE CEREBRAL ARTERIES: The right middle cerebral artery enhances in a normal fashion. However, there is an apparent occlusion or near complete occlusion of the M1 left MCA branch which is quite faint although left M3 branches do exhibit significant but diminished enhancement compared to right side. Perisylvian branches enhancement however is significantly diminished if not with occasional occlusions indicating significant left M2 multi branch thrombus propagation. POSTERIOR CIRCULATION: Basilar Artery: Unremarkable. Distal Vertebral Arteries: Left dominant vertebrobasilar circulation. Posterior Cerebral Arteries: Unremarkable. Posterior Inferior Cerebellar Arteries: Unremarkable. NECK CTA: Common Carotid arteries: The bilateral common carotid appear widely patent from their origins to their bifurcations with no significant stenosis appreciated. No evidence to suggest common carotid artery dissection. Internal Carotid arteries: Right ICA high-grade stenosis identified immediately distal to common carotid bifurcation, otherwise widely patent. Left ICA is somewhat improved proximally in terms of thrombus burden. Please see discussion in 1st paragraph of body of report. Underlying high-grade stenosis proximal left ICA not excluded at nearly the same location as right side. External Carotid arteries: Appear unremarkable bilaterally. Vertebral arteries: The bilateral vertebral arteries appear normal in caliber from their origins to their distal cervical segments. No significant stenosis or definite pattern of dissection. ANEURYSM/ VASCULAR MALFORMATIONS: None. OTHER FINDINGS: None. IMPRESSION: 1. Thrombus migration from left ICA into left M1 and M2 MCA branches results in near occlusion if not complete occlusion at left M1 and M2 branches with diminished flow throughout the M3 branches. 2. Significant residual thrombus throughout the majority of left cervical, skull base and intracranial ICA. 3. High-grade proximal right ICA stenosis immediately distal to the bifurcation. Underlying high-grade left ICA stenosis not excluded immediately distal to bifurcation. 4. Widely patent anterior communicating and right posterior communicating arteries. 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
--- NOTE | 2017-11-18 11:45 | RAD ---
Date of service: 11/18/2017 HISTORY: Code Stroke COMPARISON: Portable chest 07/31/2017. FINDINGS: LUNGS: No active pulmonary disease. PLEURA: No significant pleural effusion identified, no pneumothorax apparent. CARDIOVASCULAR: Normal. OSSEOUS STRUCTURES: No significant abnormalities. VISUALIZED UPPER ABDOMEN: Normal. OTHER FINDINGS: None. IMPRESSION: No interval acute cardiopulmonary disease appreciated.
--- NOTE | 2017-11-18 13:00 | CT ---
Date of service: 11/18/2017 PROCEDURE: CT HEAD WITHOUT CONTRAST. HISTORY: code stroke COMPARISON: None available. TECHNIQUE: Axial computed tomography images were obtained through the head/brain without intravenous contrast. Supplemental Coronal and Sagittal projections created and reviewed. Radiation dose: Total exam DLP = mGy-cm. This CT exam was performed using one or more of the following dose reduction techniques: Automated exposure control, adjustment of the mA and/or kV according to patient size, and/or use of iterative reconstruction technique. FINDINGS: HEMORRHAGE: No intracranial hemorrhage. BRAIN: No mass effect or edema. No atrophy or chronic microvascular ischemic changes. VENTRICLES: Unremarkable. No hydrocephalus. CALVARIUM: Unremarkable. PARANASAL SINUSES: Unremarkable as visualized. No significant inflammatory changes. MASTOID AIR CELLS: Unremarkable as visualized. No inflammatory changes. OTHER FINDINGS: None. IMPRESSION: No acute intracranial abnormalities. No significant findings to account for the clinical presentation. Code stroke protocol: Study completed 01:13. Preliminary report provided 01:35. Interpretation finalized and available for review 12:58. November 18, 2017
--- NOTE | 2017-11-18 13:26 | MRI ---
Date of service: 11/18/2017 PROCEDURE: MRI BRAIN WITHOUT CONTRAST HISTORY: rt sided weakness COMPARISON: Noncontrast head CT 11/18/2017 8:39 a.m. and additional head CT 11/18/2017 1:11 a.m.. TECHNIQUE: Multiplanar, multisequence MR images of the brain were obtained without intravenous contrast enhancement. FINDINGS: HEMORRHAGE: Motion artifacts degrade this exam somewhat however no prominent hemorrhage is appreciated. Hyperacute hemorrhage can be missed by MRI but is not seen in most recent prior CT 11/18/2017. DWI: Likely early restricted diffusion is identified at the left thalamus and basal ganglia as well as numerous small areas of restricted diffusion at left parietal occipital distribution and 2 foci at the right parietal occipital distribution as well. Findings reflect embolic pattern of bilateral MCA distribution acute or subacute infarcts which may increase in distribution at the left, given relatively prominent proximal left MCA thrombus appreciated in 8:39 a.m. 11/18/[address] angiogram. Linear hyperintensity at the left sylvian fissure/temporoparietal distribution may reflect ledge reperfusion. BRAIN PARENCHYMA: There is no mass effect. A tiny subcortical chronic lacune is suspected at the medial left frontal vertex (best seen image 18 series 5). Expansion of the ventricular sulcal and cisternal spaces mild compatible with limited diffuse cerebral atrophy. Trace chronic microangiopathy is questioned in the upper channing and minimally at the periventricular white-matter bilaterally. No definitive cerebellar lesion identified. VENTRICLES: Unremarkable. No hydrocephalus. CRANIUM: Unremarkable. ORBITS: Grossly unremarkable. PARANASAL SINUSES/MASTOIDS: Extensive left mastoid effusions identified. VASCULAR SYSTEM: Skull base flow voids intact. OTHER FINDINGS: None. 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 No significant mass effect. Given the extent of thrombus identified at the left MCA distribution seen most conspicuously in CT angiogram of the head and neck performed 8:51 a.m. as well as head CT performed 8:39 a.m. both on 11/18/2017. This infarction may significantly increase in distribution and intensity from the current imaging appearance. Follow up CT or MRI advised. Please see discussion above. Limited age related neuro degenerative changes reiterated. Chronic lacune medial left frontal apex.
--- NOTE | 2017-11-18 18:08 | CT ---
Date of service: 11/18/2017 PROCEDURE: CT Angiography of the Brain. HISTORY: R sided weakness, resolved COMPARISON: Noncontrast head CT 11/18/2017. TECHNIQUE: CT angiography of the intracranial and neck arteries was performed. Coronal and sagittal maximum intensity projection reformatted images were generated. Contrast Dose: Visipaque 320, 95 cc Radiation dose:Total exam DLP = 464.83 mGy-cm. This CT exam was performed using one or more of the following dose reduction techniques: Automated exposure control, adjustment of the mA and/or kV according to patient size, and/or use of iterative reconstruction technique. FINDINGS: INTERNAL CEREBRAL ARTERIES: There is diminished attenuation throughout the proximal left intra canalicular with limited peripheral enhancement most compatible with thrombus. Preliminary interpretation was of a dissection which is felt to be less likely. This diminished attenuation is seen to persist in neck ovoid fashion with crescentic enhancement in the anterior and lateral periphery involving the majority of the left internal carotid artery distal to the bifurcation. There is only a minimally enhanced segment of the proximal ICA enhancing well with contrast, essentially to 2 mm after the bifurcation. Significant atherosclerotic plaques identified at the low left carotid bulb though it is difficult to differentiate some of this from potential acute subacute thrombus. Significant plaque is seen at the right carotid bulb leading to high-grade stenosis at the proximal right SNOW a few mm distal to its origin. ANTERIOR CEREBRAL ARTERIES: Unremarkable. A1 and A2 segments are widely patent. Smaller distal branches unremarkable, as visualized. Likely as a function of patent anterior communicating artery MIDDLE CEREBRAL ARTERIES: Unremarkable. M1 and M2 segments are widely patent. Perisylvian branches grossly symmetric. Patent bilateral posterior communicating arteries though hypoplastic left PCOM is suggested. POSTERIOR CIRCULATION: Basilar Artery: Unremarkable. Distal Vertebral Arteries: Left dominant vertebrobasilar circulation identified. Posterior Cerebral Arteries: Unremarkable. Posterior Inferior Cerebellar Arteries: Unremarkable. NECK CTA: Common Carotid arteries: The bilateral common arteries are widely patent up to the level of carotid bulbs for atheromatous plaque is seen significantly bilaterally. Please see internal carotid artery discussion above which includes the carotid bulb discussion. Internal Carotid arteries: Included in internal cerebral artery discussion above. External Carotid arteries: Appear unremarkable bilaterally. Vertebral arteries: The bilateral vertebral arteries appear normal in caliber from their origins to their distal cervical segments. No significant stenosis or definite pattern of dissection. ANEURYSM/ VASCULAR MALFORMATIONS: None. OTHER FINDINGS: None. IMPRESSION: 1. Extensive thrombosis of the left ICA is appreciated less than 1 cm distal to its origin up to the intra canalicular segment but appearing to spare the cavernous segment at this time though atherosclerotic plaque is seen at the origin causing a relatively high-grade stenosis prior to the partial thrombosis. Trace enhancement is seen in the periphery of the affected left ICA with intracranial enhancement appearing symmetric nevertheless. Dissection of the left ICA felt to be less likely though not completely excluded. 2. Patent bilateral SNOW, [employer] and MCA distributions grossly evident with patent A-comm and bilateral PCOM arteries. Posterior arterial circulation appears intact as well. 3. High-grade stenosis proximal right ICA immediately distal to its origin. Discordant preliminary report from [facility] (Impression No. 1 and 3), 11/18/2017.
== END 2017-11-18 11:26 | disposition short-term general hospital (02) | DRG 65 ==
LOC: H.ER 00:39 → H.ERHOLD 01:31 → H.TEL 08:24
PROVIDERS: ADMIT Internal Medicine; ATTEND Internal Medicine
DX: I63.312 Cerebral infarction due to thrombosis of left middle cerebral artery (principal); G81.91 Hemiplegia, unspecified affecting right dominant side; R47.01 Aphasia; E78.00 Pure hypercholesterolemia, unspecified; I10 Essential (primary) hypertension; Z88.0 Allergy status to penicillin; E78.5 Hyperlipidemia, unspecified; F17.210 Nicotine dependence, cigarettes, uncomplicated; R29.700 NIHSS score 0